=== PATIENT | male | born 1960 ===

== ENCOUNTER 2020-06-12 10:00 | Inpatient (IN) | payer OTHER ==
[~2020-06-12] VITALS: Ht 180.3 cm; Wt 81.6 kg
[2020-06-12] MEDS ORDERED: COZAAR25 MG PO (11:05)
[2020-06-12] MEDS ORDERED: CRESTOR10 MG PO (11:06)
[2020-06-12] MEDS ORDERED: TAMS0.4C PO (11:06)
== END 2020-07-09 18:02 | disposition home or self-care (01) | DRG 329 ==
LOC: O/R 06-17 06:57 → SURH 06-17 10:00 → SURG 06-17 14:10 → SURH 06-17 14:15 → ICU 06-21 21:56 → SURH 07-07 19:38
PROVIDERS: ADMIT Colon & Rectal Surgery; ATTEND Colon & Rectal Surgery
PROC: 07BB4ZX Excision of Mesenteric Lymphatic, Percutaneous Endoscopic Approach, Diagnostic (ICD-10-PCS; 2020-06-17)
PROC: 3E0F7SF Introduction of Other Gas into Respiratory Tract, Via Natural or Artificial Opening (ICD-10-PCS; 2020-06-17)
PROC: 0DBU4ZZ Excision of Omentum, Percutaneous Endoscopic Approach (ICD-10-PCS; 2020-06-17)
PROC: 0DBK4ZZ Excision of Ascending Colon, Percutaneous Endoscopic Approach (ICD-10-PCS; principal; 2020-06-17 14:15)
PROC: 4A03XB1 Measurement of Arterial Pressure, Peripheral, External Approach (ICD-10-PCS; 2020-06-18)
PROC: 4A12X4Z Monitoring of Cardiac Electrical Activity, External Approach (ICD-10-PCS; 2020-06-19)
PROC: BW2410Z Computerized Tomography (CT Scan) of Chest and Abdomen using Low Osmolar Contrast, Unenhanced and Enhanced (ICD-10-PCS; 2020-06-19)
PROC: B54DZZZ Ultrasonography of Bilateral Lower Extremity Veins (ICD-10-PCS; 2020-06-19)
PROC: 05HY33Z Insertion of Infusion Device into Upper Vein, Percutaneous Approach (ICD-10-PCS; 2020-06-20)
PROC: 5A09457 Assistance with Respiratory Ventilation, 24-96 Consecutive Hours, Continuous Positive Airway Pressure (ICD-10-PCS; 2020-06-20)
PROC: 5A1955Z Respiratory Ventilation, Greater than 96 Consecutive Hours (ICD-10-PCS; 2020-06-22)
PROC: 0BH17EZ Insertion of Endotracheal Airway into Trachea, Via Natural or Artificial Opening (ICD-10-PCS; 2020-06-22)
PROC: 8E0ZXY6 Isolation (ICD-10-PCS; 2020-06-30)
PROC: BW2410Z Computerized Tomography (CT Scan) of Chest and Abdomen using Low Osmolar Contrast, Unenhanced and Enhanced (ICD-10-PCS; 2020-07-01)
PROC: 30233N1 Transfusion of Nonautologous Red Blood Cells into Peripheral Vein, Percutaneous Approach (ICD-10-PCS; 2020-07-02)
DX: C18.2 Malignant neoplasm of ascending colon (principal); A41.89 Other specified sepsis; J96.01 Acute respiratory failure with hypoxia; C77.1 Secondary and unspecified malignant neoplasm of intrathoracic lymph nodes; C78.02 Secondary malignant neoplasm of left lung; C78.01 Secondary malignant neoplasm of right lung; J44.1 Chronic obstructive pulmonary disease with (acute) exacerbation; N17.8 Other acute kidney failure; B37.89 Other sites of candidiasis; E87.3 Alkalosis; R18.8 Other ascites; J98.11 Atelectasis; E87.0 Hyperosmolality and hypernatremia; I87.2 Venous insufficiency (chronic) (peripheral); D64.89 Other specified anemias; Z66 Do not resuscitate; I95.89 Other hypotension; E88.09 Other disorders of plasma-protein metabolism, not elsewhere classified; K29.60 Other gastritis without bleeding; Z72.3 Lack of physical exercise; R60.1 Generalized edema; Z20.822 Contact with and (suspected) exposure to COVID-19

== ENCOUNTER 2020-09-05 06:24 | Day surgery (SDC) | payer OTHER ==
[~2020-09-05 06:24] MED LIST: COZAAR25 MG PO; CRESTOR10 MG PO; TAMS0.4C PO
[2020-09-05] MEDS ORDERED: ULTRAM50 MG PO (14:24)
== END 2020-09-05 15:35 | disposition home or self-care (01) ==
LOC: CIR.AMB 06:24
PROVIDERS: ATTEND Surgery
DX: C18.2 Malignant neoplasm of ascending colon (principal); Z20.822 Contact with and (suspected) exposure to COVID-19
CPT/HCPCS: 36561; C1751